=== PATIENT | male | born 1985 | race Two or more races ===

== ENCOUNTER 2024-06-01 12:14 | Emergency (ER) | payer OTHER, SELFPAY ==
[2024-06-01 12:17] VITALS: BP 119/69; PULSE 76; RESP 16; TEMP 36.6; O2SAT 97; BMI 27.4
--- NOTE | 2024-06-01 12:17 | ED.GENADULT ---
HPI - General Adult General Chief complaint: Abdominal Pain Stated complaint: Abd pain Time Seen by Provider: 06/01/24 19:19 Source: patient Mode of arrival: ambulatory Limitations: no limitations History of Present Illness ED Provider: Dr. Nelson Ta HPI narrative: 39-year-old male with no significant past medical history who presents emergency department for evaluation of nausea, subjective fever, abdominal pain and diarrhea. Patient states that 1 week prior he developed severe abdominal pain. Pain was located below his umbilicus, constant and severe. States that he also had multiple episodes of diarrhea per day-too many to count. The diarrhea was watery with no blood in the diarrhea. Patient states that over the past 2-3 days his abdominal pain is almost completely resolved. The frequency of his bowel movements have returned to normal in his last stool was a formed stool. 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 He denies recent antibiotic use. There were no known contacts with diarrhea. Related Data Allergies Allergy/AdvReac Type Severity Reaction Status Date / Time No Known Allergies Allergy Verified 06/01/24 12:18 Review of Systems Review of Systems: Yes all other systems are reviewed and are negative [facility] Past Medical History [facility] Narrative: Social history: The patient is . 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 He denies tobacco, alcohol and drug use. Social History Social History Advance Directives: No Advance Directives Information Provided: No Physical Exam ED Vital Signs: Vital Signs - 24 hr 06/01/24 12:17 Temperature 97.8 F Pulse Rate 76 Respiratory Rate 16 Blood Pressure 119/69 Pulse Oximetry 97 Oxygen Delivery Method Room Air BMI result Body Mass Index 27.4 Vital signs were normal Exam: General: Awake, alert in no distress Head: Normocephalic, atraumatic EENT: PERRL, Lids normal, sclera normal, conjunctiva normal, nose normal , ears normal, throat without erythema or exudates Neck: Supple, no adenopathy Lung: breath sounds symmetric, no wheezing, rales or rhonchi Chest: symmetric movement, nontender Heart: regular rate and rhythm, normal S1, S2 no murmurs or rubs Abdomen: soft, non-tender, nondistended, normal bowel sounds Back: no vertebral tenderness, no CVAT Extremities: no deformities, moves all extremities symmetrically Neuro: Awake, alert, oriented, normal speech, cranial nerves intact, moves all extremities symmetrically Psych: Pleasant, cooperative Course Course Course Narrative: RME performed by Kari Mathew PA-C. Patient is a 39 year old assigned male at presenting to the emergency department with abdominal pain and diarrhea. Patient states that over the last week he has been having significant abdominal pain. Detailed physical exam and review of systems are deferred to the smoke jumper. Labs and swabs ordered. Patient placed back in the waiting room pending room availability and results. Medical Decision Making Medical Decision Making [facility] Narrative: 39-year-old male with no significant past medical history who presents emergency department for evaluation of nausea, subjective fever, abdominal pain and diarrhea x1 week. Patient's abdominal pain was below his umbilicus, constant and severe but is resolved. Patient had too numerous diarrheal stools to count per day which have resolved and his last stool was a formed stool. The patient has not been on antibiotics recently, he did not leave the country and there were no known sick contacts. Patient was vital signs were normal. Vital signs were normal. Patient's abdominal exam was unremarkable with no localizing tenderness. Differential diagnosis: ?Includes but is not limited to appendicitis, pancreatitis, diverticulitis, viral syndrome, COVID-19, influenza, RSV, anemia, electrolyte abnormalities Course: 19:47 My interpretation patient's laboratory evaluation as follows: CBC was normal. CMP was normal except for an elevated AST of 68. Lipase was normal COVID-19, influenza and RSV were negative. Patient's presentation laboratory evaluation and physical findings are consistent with a viral enteritis causing abdominal pain, subjective fever chills and diarrhea. I did discuss this with the patient. Patient was advised to take Tylenol and ibuprofen for pain. He was also advised to take Imodium for his diarrhea. He was given printed and verbal instructions discharged home. Admission/Observation Consideration of admission/observation: Escalation of care including admission/observation considered (Yes) Lab Data [facility] Lab Attestation statement: I reviewed the patient's lab results. 06/01/24 12:34 06/01/24 12:34 Labs: Lab Results 06/01/24 Range/Units 12:34 WBC 8.1 (4.8-10.8) X10*3/uL RBC 5.09 (4.60-5.80) X10*6/uL Hgb 14.8 (14.0-18.0) g/dl Hct 42.7 (42.0-52.0) % MCV 83.9 (80.0-98.0) fL MCH 29.1 (27.0-33.0) pg MCHC 34.7 (31.0-36.0) g/dl RDW 12.7 (11.0-16.0) % Plt Count 274 (160-400) X10*3/uL MPV 10.6 (9.4-12.4) fL Immature Gran % (Auto) 0.7 H (0.0-0.4) % Neut % (Auto) 50.1 (45-73) % Lymph % (Auto) 38.4 (20-40) % [place] % (Auto) 6.9 (2-11) % Eos % (Auto) 3.2 (0-4) % Baso % (Auto) 0.7 (0-2) % Lymph # (Auto) 3.1 (1.2-4.9) X10*3/uL [place] # (Auto) 0.6 (0.1-1.2) X10*3/uL Eos # (Auto) 0.3 (0.0-0.4) X10*3/uL Baso # (Auto) 0.1 (0.0-0.2) X10*3/uL Abs Immat Gran (auto) 0.06 H (0.00-0.03) X10*3/uL Absolute Neuts (auto) 4.0 (2.0-8.3) x10*3/uL Absolute Nucleated RBC 0.000 (0.0-0.012) X10*3/uL Nucleated RBC % (auto) 0.0 (0.0-0.2) /100WBC Sodium 139 (135-145) mmol/L Potassium 3.9 (3.3-5.1) mmol/L Chloride 108 (96-108) mmol/L Carbon Dioxide 25 (22-29) mmol/L Anion Gap 10 L (12-20) BUN 9 (9-16) mg/dL Creatinine 0.79 (0.5-1.4) mg/dL Estim Creat Clear Calc 128.0 Estimated GFR > 60 Random Glucose 91 (60-115) mg/dL Calcium 9.4 (8.4-10.2) mg/dL Magnesium 2.1 (1.6-2.6) mg/dL Total Bilirubin 0.4 (0.0-1.0) mg/dL AST 36 (5-37) U/L ALT 68 H (0-40) U/L Alkaline Phosphatase 73 (39-117) U/L Total Protein 7.4 (6.5-8.0) g/dL Albumin 4.3 (3.5-5.0) g/dL Lipase 61 (8-78) U/L Urine Color Yellow Urine Appearance Clear Urine pH 7.0 (5.0-9.0) Ur Specific [place] 1.015 (1.005-1.025) Urine Protein Negative (Neg-Trace) mg/dL Urine Glucose (UA) Negative (Negative) mg/dL Urine Ketones Negative (Negative) mg/dL Urine Blood Negative (Negative) Urine Nitrite Negative (Negative) Ur Leukocyte Esterase Negative (Negative) Influenza Type A (PCR) NEGATIVE (Negative) Influenza Type B (PCR) NEGATIVE (Negative) RSV RNA Qual (PCR) NEGATIVE (Negative) SARS-CoV-2 RNA (RT-PCR) NEGATIVE (Negative) Discharge Plan Discharge Clinical Impression: Viral enteritis Patient Disposition: Home, Self-Care Instructions: Enteritis (ED) Additional Instructions: You had a complete blood count, comprehensive metabolic panel, urinalysis, COVID-19, influenza and RSV tests. All of these tests were normal which was reassuring. Your symptoms and severe abdominal pain are consistent with a viral enteritis-viruses can cause severe abdominal pain secondary to severe diarrhea Take ibuprofen 200 mg pills, 2 pills every 6 hours as needed for pain or fever. Take Tylenol (acetaminophen) 500 mg pills, 2 pills every 6 hours as needed for pain or fever. For diarrhea, I want you to take Imodium 2 mg pills. ?Take 2 pills after the 1st loose, diarrheal stool then 1 pill after each loose, diarrheal stool up to 8 pills per day. ?This usually stops diarrhea within 24 hours. Follow-up with your doctor in 2 days. Please return to the emergency department if your symptoms get worse or if you develop any symptoms that are concerning to you. Print Language: Divehi
[2024-06-01 12:41] LABS: MANUAL DIFF FLAG NO
[2024-06-01 12:45] LABS: Appearance Urine Clear; Color Urine Yellow; Glucose Urine UA Negative (Negative); Leukocyte Esterase Urine Negative (Negative); Nitrite Urine Negative (Negative); Specific Gravity - Urine 1.015 (1.005-1.025); Urine Blood Negative (Negative); Urine Ketones Negative (Negative); Urine Protein Negative (Neg-Trace)
[2024-06-01 12:48] LABS: Basophils Absolute Auto 0.1 X10*3/uL (0.0-0.2); Basophils Percent Auto 0.7 % (0-2); Eosinophils Absolute Auto 0.3 X10*3/uL (0.0-0.4); Eosinophils Percent Auto 3.2 % (0-4); Hematocrit 42.7 % (42.0-52.0); Hemoglobin 14.8 g/dl (14.0-18.0); Imm Gran Abs Auto 0.06 X10*3/uL (0.00-0.03); Imm Gran Pct Auto 0.7 % (0.0-0.4); Lymphocytes Absolute Auto 3.1 X10*3/uL (1.2-4.9); Lymphocytes Percent Auto 38.4 % (20-40); Mean Corpuscular HGB Conc 34.7 g/dl (31.0-36.0); Mean Corpuscular Hemoglobin 29.1 pg (27.0-33.0); Mean Corpuscular Volume 83.9 fL (80.0-98.0); Mean Platelet Volume 10.6 fL (9.4-12.4); Monocytes Absolute Auto 0.6 X10*3/uL (0.1-1.2); Monocytes Percent Auto 6.9 % (2-11); Neutrophils Percent Auto 50.1 % (45-73); Platelet Count 274 X10*3/uL (160-400); Red Blood Count 5.09 X10*6/uL (4.60-5.80); Red Cell Distribution Width 12.7 % (11.0-16.0); White Blood Count 8.1 X10*3/uL (4.8-10.8)
[2024-06-01 12:59] LABS: Alanine Aminotransferase 68 U/L (0-40); Albumin Level 4.3 g/dL (3.5-5.0); Alkaline Phosphatase 73 U/L (39-117); Anion Gap 10 (12-20); Aspartate Amino Transferase 36 U/L (5-37); Bilirubin Total 0.4 mg/dL (0.0-1.0); Blood Urea Nitrogen 9 mg/dL (9-16); Calcium 9.4 mg/dL (8.4-10.2); Carbon Dioxide 25 mmol/L (22-29); Chloride 108 mmol/L (96-108); Estimated Glomerular Filt Rate > 60; Glucose Random 91 mg/dL (60-115); Magnesium 2.1 mg/dL (1.6-2.6); Potassium 3.9 mmol/L (3.3-5.1); Sodium 139 mmol/L (135-145); Total Protein 7.4 g/dL (6.5-8.0)
[2024-06-01 13:21] LABS: Influenza A PCR NEGATIVE (Negative); Influenza B PCR NEGATIVE (Negative); Resp Syncy Virus RNA Qual PCR NEGATIVE (Negative); SARS COV2 PCR INHOUSE NEGATIVE (Negative)
--- OUTSIDE RECORDS SUMMARY | 2024-06-01 19:26 | XMS_ITS | Continuity of Care Document ---
Author Organization [facility] ter Address [address] [place] [id number]- Care Team Providers Care Backrest Assembler Name Role Phone Tatyana Sorensen Primary Care Physician Encounter [facility] Date(s): 05/20/22 - 05/20/[address] [id number]- Discharge Disposition: A-D/C Walkout Attending Physician: Not on Staff, Attending MD Admitting Physician: Not on Staff, Admitting MD Referring Physician: Not on Staff, Referring MD Allergies, Adverse Reactions, Alerts No Known Allergies Medications acetaminophen 650 mg oral tablet 1 tablet = 650 mg, By Mouth, Every 8 hours, # 63 tablet, 0 Refills, Maintenance Start Date: 12/21/10 Stop Date: 01/11/11 Status: Ordered ibuprofen 600 mg oral tablet 1 tablet = 600 mg, By Mouth, 4 times a day, PRN Pain, # 84 tablet, 0 Refills, Maintenance Start Date: 12/21/10 Stop Date: 01/11/11 Status: Ordered ibuprofen 600 mg oral tablet 1 tablet = 600 mg, By Mouth, Every 6 to 8 hours, with food or milk, # 24 tablet, 0 Refills, Maintenance, 07/16/15 10:45:58 Start Date: 07/16/15 Status: Ordered Problem List Condition Confirmation Course Effective Dates Status Health St atus Informant Elevated liver enzymes Confirmed Active Vital Signs Most recent to oldest [Reference Range]: 1 Oxygen Saturation [94-100 %] 100 % (05/20/22 4:02 AM) Pulse Rate [55-90 bpm] 64 bpm (05/20/22 4:02 AM) Blood Pressure [90-138/55-84 mm Hg] 123/ 72mm Hg (05/20/22 4:02 AM) Respiratory Rate [16-30 br/min] 16 br/mi n (05/20/22 4:02 AM) Temperature [96.8-100.4 DegF] 97.5 DegF (05/20/22 4:02 AM) Mode of Delivery (Oxygen) Room air (05/20/22 4:02 AM) Blood pressure sites Arm, right (05/20/22 4:02 AM) Temperature Route Oral (05/20/22 4:02 AM) Patient Care team information Personnel Name: Tatyana Sorensen Address: Address: [address] [place] [address] [place], [place] [address]
[2024-06-01 19:32] LABS: Lipase 61 U/L (8-78)
[2024-06-01 19:47] VITALS: BP 119/69; PULSE 76; RESP 16; TEMP 36.6; O2SAT 97
== END 2024-06-01 19:48 | disposition home or self-care (01) ==
PROVIDERS: Physician Assistant Medical; Emergency Provider Emergency Medicine Emergency Medical Services
DX: A08.4 Viral intestinal infection, unspecified (principal); R11.0 Nausea; R50.9 Fever, unspecified; R10.9 Unspecified abdominal pain; R19.7 Diarrhea, unspecified; Z03.818 Encounter for observation for suspected exposure to other biological agents ruled out
CPT/HCPCS: 0241U; 80053; 81003; 83690; 83735; 85025; 99282; 99283